=== PATIENT | male | born 1990 | race Caucasian/White ===

== ENCOUNTER → 2020-10-20 12:21 | Outpatient (CLI) | payer BC, SELFPAY | PROVIDERS: Visit Provider Nurse Practitioner Family | DX: R50.9 Fever, unspecified (principal) | CPT/HCPCS: 87635; U0003 ==

== ENCOUNTER 2021-04-27 14:44 | Outpatient (RCR) | payer BC, SELFPAY | END 2021-05-06 23:59 | LOC: NS 14:44 | PROVIDERS: Visit Provider Family Medicine | DX: Z71.3 Dietary counseling and surveillance (principal); E66.9 Obesity, unspecified; Z68.33 Body mass index [BMI] 33.0-33.9, adult | CPT/HCPCS: 97802 ==

== ENCOUNTER → 2021-05-08 15:20 | Outpatient (CLI) | payer BC, SELFPAY ==
[2021-05-08 17:31] LABS: Absolute Lymphocyte Count 1.74 X10^3/uL (0.83-4.51); Absolute Neutrophil Count 3.3 X10^3/uL (2.0-7.7); Basophil# 0.05 X10^3/uL; Basophil% 0.8 % (0-1); Eosinophil# 0.15 X10^3/uL; Eosinophils% 2.5 % (0-5); Hematocrit 44.1 % (40-54); Hemoglobin 14.6 g/dL (13.0-16.5); Lymphocyte # 1.74 X10^3/ul (0.83-4.51); Lymphocyte % 29.5 % (19-41); Mean Corp Hgb Conc 33.1 g/dL (32-36); Mean Corpuscular Volume 84.5 fL (80-94); Mean Platelet Vol. 8.7 fl (6.2-12.0); Monocyte# 0.69 X10^3/uL; Monocyte% 11.7 % (0-10); NRBC Flagged by Analyzer 0 % (0-5); Neutrophil # 3.25 X10^3/uL (2.7-7.7); Neutrophil % 55.2 % (47-70); Platelet Count 214 K/mm3 (150-450); RBC Distribution Width CV 12.2 % (11.6-14.6); RBC Distribution Width SD 37.2 fl (35.1-43.9); Red Blood Count 5.22 M/mm3 (4.6-6.2); White Blood Count 5.9 K/mm3 (4.4-11.0)
[2021-05-08 17:50] LABS: Vitamin D,25 Hydroxy 23.3 ng/mL
== END ==
PROVIDERS: Visit Provider Family Medicine
DX: E66.9 Obesity, unspecified (principal)
CPT/HCPCS: 36415; 82306; 85025

== ENCOUNTER 2021-06-01 16:00 | Outpatient (RCR) | payer BC, SELFPAY | END 2021-06-06 23:59 | LOC: NS 16:00 | PROVIDERS: Visit Provider Family Medicine | DX: Z71.3 Dietary counseling and surveillance (principal); E66.9 Obesity, unspecified; Z68.33 Body mass index [BMI] 33.0-33.9, adult | CPT/HCPCS: 97803 ==

== ENCOUNTER 2021-06-29 16:26 | Outpatient (RCR) | payer BC, SELFPAY | END 2021-07-07 23:59 | LOC: NS 16:26 | PROVIDERS: Visit Provider Family Medicine | DX: Z71.3 Dietary counseling and surveillance (principal); E66.9 Obesity, unspecified; Z68.33 Body mass index [BMI] 33.0-33.9, adult | CPT/HCPCS: 97803 ==

== ENCOUNTER 2021-07-20 15:26 | Outpatient (RCR) | payer BC, SELFPAY | END 2021-08-06 23:59 | LOC: NS 15:26 | PROVIDERS: Visit Provider Family Medicine | DX: Z71.3 Dietary counseling and surveillance (principal); E66.9 Obesity, unspecified; Z68.33 Body mass index [BMI] 33.0-33.9, adult | CPT/HCPCS: 97802 ==

== ENCOUNTER 2021-08-10 16:19 | Outpatient (RCR) | payer BC, SELFPAY | END 2021-09-06 23:59 | LOC: NS 16:19 | PROVIDERS: Visit Provider Family Medicine | DX: Z71.3 Dietary counseling and surveillance (principal); E66.9 Obesity, unspecified; Z68.33 Body mass index [BMI] 33.0-33.9, adult | CPT/HCPCS: 97803 ==

== ENCOUNTER 2021-09-21 16:04 | Outpatient (RCR) | payer BC, SELFPAY | END 2021-10-06 23:59 | LOC: NS 16:04 | PROVIDERS: PCP Family Medicine; Visit Provider Family Medicine | DX: Z71.3 Dietary counseling and surveillance (principal); E66.9 Obesity, unspecified; Z68.33 Body mass index [BMI] 33.0-33.9, adult | CPT/HCPCS: 97803 ==

== ENCOUNTER 2021-10-19 17:01 | Outpatient (RCR) | payer BC, SELFPAY | END 2021-11-06 23:59 | LOC: NS 17:01 | PROVIDERS: PCP Family Medicine; Visit Provider Family Medicine | DX: Z71.3 Dietary counseling and surveillance (principal); E66.9 Obesity, unspecified; Z68.33 Body mass index [BMI] 33.0-33.9, adult | CPT/HCPCS: 97803 ==

== ENCOUNTER → 2022-05-05 | Outpatient (CLI) | payer BC, SELFPAY ==
[2022-05-05 18:28] LABS: Vitamin D,25 Hydroxy 43.2 ng/mL
== END | disposition home or self-care (01) ==
LOC: MFPLAB 16:30
PROVIDERS: PCP Family Medicine; Visit Provider Family Medicine
DX: E55.9 Vitamin D deficiency, unspecified (principal)
CPT/HCPCS: 36415; 82306

== ENCOUNTER 2023-07-27 12:35 | Emergency (ER) | payer BC, SELFPAY ==
[2023-07-27 12:37] VITALS: BP 147/106; PULSE 78; RESP 18; TEMP 36.3; O2SAT 98; BMI 33.1
--- NOTE | 2023-07-27 12:51 | EKG12_ITS ---
Test Reason : PALP Blood Pressure : / mmHG Vent. Rate : 082 BPM Atrial Rate : 082 BPM P-R Int : 142 ms QRS Dur : 092 ms QT Int : 398 ms P-R-T Axes : 024 002 021 degrees QTc Int : 464 ms Normal sinus rhythm with sinus arrhythmia Normal ECG Confirmed by DARIO FINCH, MELISSA ([id number]), primer expeditor and drier LEYLA FIORE ([id number]) on 08/02/2023 10:43:01 AM Referred By: KARLOS/GARCIA Confirmed By:ARMIN BISHOP MD
--- NOTE | 2023-07-27 12:51 | EDS_ITS ---
HPI History of Present Illness Chief Complaint: Numb/Ting Detail of Chief Complaint: Paresthesias Informant: patient Narrative Narrative: Patient presents to the emergency department with complaint of paresthesias and chest discomfort. Patient states 2 weeks ago he got into a hot tub and had numbness and tingling to both feet that then resolved. Starting 5 days ago started having some odd sensations across his chest that felt like a burning sensation. He has had some intermittent burning sensation and numbness and tingling in both hands and both feet. This morning he has some numbness and tingling to his lips. Patient has been under increased stress and states that he lost his 3-1/2-year-old daughter about 3 months ago. No known history of anxiety or panic attacks. Denies recent illness otherwise. No family history of sudden cardiac or heart disease at a young age. No history of migraines. PFSH PFSH Home Medications lorazepam 1 mg tablet (Ativan) 1 mg PO TID PRN anxiety #10 tabs 07/27/23 [Rx Last Taken Unknown] Allergy/AdvReac Type Severity Reaction Status Date / Time No Known Allergies Allergy Verified 07/27/23 12:37 Social History Smoking Status: Never smoker ROS ROS ED Review of Systems ROS Unobtainable: other Constitutional Constitutional ED: Reports lethargy; Denies chills, fever(s), sweats or weight loss Eyes Eyes: Denies blurry vision, change in vision or diplopia ENT ENT ED: Denies rhinorrhea or sore throat Cardiovascular Cardiovascular: Reports chest pain; Denies orthopnea or racing heartbeat Respiratory/Chest Respiratory/Chest: Reports dyspnea and dyspnea on exertion; Denies cough, orthopnea or sputum Gastrointestinal Gastrointestinal: Denies abdominal pain, diarrhea, nausea or vomiting Genitourinary Genitourinary ED: Denies dysuria, hematuria or urinary frequency Musculoskeletal Musculoskeletal: Denies arthralgias, back pain, myalgias or neck pain Integumentary Denies abscess, Abrasions or rash Neurologic Neurologic: Reports paresthesias; Denies headache(s) or weakness Psychiatric Psychiatric: Denies anxiety, depression or suicidal thoughts Endocrine Endocrinology: Denies polydipsia, polyphagia or polyuria Hematologic/Lymphatic Hematologic/Lymphatic: Denies easy bleeding, easy bruising or lymphadenopathy Allergic/Immunologic Allergic/Immunologic ED: Denies mouth swelling, tongue swelling or urticaria EXAM Physical Exam Const Vital Signs: 07/27/23 12:37 Temperature 97.3 F L Temperature Source Temporal Pulse Rate 78 Respiratory Rate 18 Blood Pressure 147/106 H Blood Pressure Mean 119 Pulse Ox 98 Oxygen Delivery Method Room Air Positive well nourished and well developed General Appearance ED: well developed and NAD HEENT Reports TM's clear and moist mucous membranes normocephalic and atraumatic; Negative for trauma or tenderness Tympanic Membrane ED: Yes TM's clear Eyes PERRL and EOMs intact bilaterally General Eye ED: Negative for pale conjunctiva or scleral icterus Neck no lymphadenopathy, supple and no JVD General: Negative for tenderness Chest Wall inspection of chest normal and palpation of chest normal Chest: Negative for tenderness Resp normal respiratory effort and clear to auscultation bilaterally Effort and Inspection: Negative for respiratory distress or pain with movement Auscultation: Negative for rhonchi, wheezes or diminished lung sounds Cardio regular rate, regular rhythm, S1 normal heart sound, S2 normal heart sound and no murmurs Peripheral Pulses: pulses 2+ throughout GI normal to inspection, nondistended, normoactive bowel sounds, soft to palpation, non-tender, non-distended and no masses Back/Spine no CVA tenderness and no thoracic nor lumbar tenderness Extremity normal to inspection General Extremety ED: Negative for edema General Extremity: Negative for edema Neuro oriented x3, CN's II-XII intact bilaterally, no sensory deficits noted and gait normal Sensorium / Orientation: awake, alert, oriented to person, oriented to place and oriented to time Motor Exam: strength 5/5 throughout and strength abnormal Psych mental status grossly normal Skin no rashes or lesions noted and no wounds MDM MDM MDM Narrative Medical decision making narrative: Patient presents with multiple vague complaints of feeling jittery and paresthesias intermittently in the hands and feet and face. Patient at times with chest pain and some shortness of breath. He has had significant loss recently. No diagnosis of anxiety. IV line established. EKG obtained on arrival showed a sinus rhythm with a rate of 82 bpm with occasional PACs. CBC with differential was normal. Chemistries unremarkable. Blood glucose was minimally elevated at 108 but this is not a fasting level. Troponin less than 3. This point etiology of his symptoms unclear although I suspect a component of anxiety. We will write him a prescription for Ativan as needed. Advised to follow-up with his primary care physician whom he has an appointment with in 6 days. Lab Data Attestation: I reviewed the patient's lab results. Labs: Laboratory Results - last 24 hr 07/27/23 13:20 WBC 5.1 RBC 5.61 Hgb 15.3 Hct 46.9 MCV 83.6 MCH 27.3 MCHC 32.6 RDW Std Deviation 37.3 RDW Coeff of [place] 12.3 Plt Count 205 MPV 8.5 Immature Gran % (Auto) 0.200 Neut % (Auto) 60.5 Lymph % (Auto) 26.2 [place] % (Auto) 9.2 Eos % (Auto) 2.9 Baso % (Auto) 1.0 Absolute Neuts (auto) 3.1 Absolute Lymphs (auto) 1.34 Nucleated RBC % 0 Sodium 138 Potassium 3.8 Chloride 107 Carbon Dioxide 29.0 Anion Gap 2 L BUN 15 Creatinine 1.07 Estim Creat Clear Calc 116.30 Est GFR (MDRD) Af Amer 104 Est GFR (MDRD) Non-Af 86 BUN/Creatinine Ratio 14.0 Glucose 108 H Calcium 8.9 Troponin I High Sens < 3 L Discharge Plan Triage Chief Complaint: Numb/Ting ED Provider: Adeola Ojeda Dx/Rx/DC Orders Clinical Impression: Paresthesias, Anxiety, Chest pain Instructions: ED Anxiety Reaction, ED Chest Pain, Uncertain Cause, ED Paraesthesias Prescriptions: New lorazepam [Ativan] 1 mg tablet 1 mg PO TID PRN (Reason: anxiety) Qty: 10 0RF Primary Care Provider: Shane Calixto Referrals: Shane Calixto MD [Primary Care Provider] - 3-5 Days Disposition Disposition: Home, Self Care Discharge Date/Time: 07/27/23 14:07
--- NOTE | 2023-07-27 13:01 | NURSING ---
NO OLD EKG
[2023-07-27 13:25] LABS: Absolute Lymphocyte Count 1.34 X10^3/uL (0.83-4.51); Absolute Neutrophil Count 3.1 X10^3/uL (2.0-7.7); Basophil# 0.05 X10^3/uL; Eosinophil# 0.15 X10^3/uL; Eosinophils% 2.9 % (0-5); Hematocrit 46.9 % (40-54); Hemoglobin 15.3 g/dL (13.0-16.5); Lymphocyte # 1.34 X10^3/ul (0.83-4.51); Lymphocyte % 26.2 % (19-41); Mean Corp Hgb Conc 32.6 g/dL (32-36); Mean Corpuscular Hgb 27.3 pg (27.0-32.0); Mean Corpuscular Volume 83.6 fL (80-94); Mean Platelet Vol. 8.5 fl (6.2-12.0); Monocyte# 0.47 X10^3/uL; Monocyte% 9.2 % (0-10); NRBC Flagged by Analyzer 0 % (0-5); Neutrophil % 60.5 % (47-70); Platelet Count 205 K/mm3 (150-450); RBC Distribution Width CV 12.3 % (11.6-14.6); RBC Distribution Width SD 37.3 fl (35.1-43.9); Red Blood Count 5.61 M/mm3 (4.6-6.2); White Blood Count 5.1 K/mm3 (4.4-11.0)
[2023-07-27 13:45] LABS: Anion Gap 2 (5-15); BUN 15 mg/dL (7-18); Calcium,Total 8.9 mg/dL (8.5-10.1); Chloride 107 mmol/L (98-107); Creatinine, Serum 1.07 mg/dL (0.70-1.30); EST Glomerular Filtration Rate 86 mL/min (>60); Est Glom Filt Rate - Afr Amer 104 mL/min (>60); Glucose 108 mg/dL (74-106); Potassium 3.8 mmol/L (3.5-5.1); Sodium Level 138 mmol/L (136-145); Troponin-I HS < 3 pg/mL (3.0-78.0)
[2023-07-27 14:06] VITALS: BP 139/77; PULSE 62; RESP 15; O2SAT 97
== END 2023-07-27 14:07 | disposition home or self-care (01) ==
PROVIDERS: Emergency Provider Emergency Medicine; PCP Family Medicine; Visit Provider Emergency Medicine
DX: R20.2 Paresthesia of skin (principal); R07.9 Chest pain, unspecified; F41.9 Anxiety disorder, unspecified; R73.9 Hyperglycemia, unspecified; R06.00 Dyspnea, unspecified
CPT/HCPCS: 80048; 84484; 85025; 93005; 99284

== ENCOUNTER → 2024-07-27 | Outpatient (CLI) | payer BC, SELFPAY ==
[2024-07-27 08:37] LABS: Vitamin B12 600 pg/mL (211-911); Vitamin D,25 Hydroxy 27.9 ng/mL
[2024-07-27 08:51] LABS: Cholesterol 170 mg/dL (200); High Density Lipoprotein 61 mg/dL; Triglycerides 88 mg/dL; Very Low Density Lipoprotein 18 mg/dL (5-40)
== END | disposition home or self-care (01) ==
PROVIDERS: PCP Family Medicine; Referring Provider Family Medicine; Visit Provider Family Medicine
DX: E78.5 Hyperlipidemia, unspecified (principal); E55.9 Vitamin D deficiency, unspecified; E53.8 Deficiency of other specified B group vitamins
CPT/HCPCS: 36415; 80061; 82306; 82607

== ENCOUNTER → 2025-06-24 | Outpatient (CLI) | payer BC, SELFPAY ==
--- NOTE | 2025-06-24 09:29 | BI_ITS ---
EXAM: DIAG MAMM W/CAD, BILAT N/A CLINICAL HISTORY: M, Age 35 y/o , LEFT BREAST MASS. 2 palpable masses in the left breast. They are not painful. He does have a history of lipomas. TECHNIQUE: DIAG MAMM W/CAD, BILAT. COMPARISON: None. FINDINGS: TISSUE DENSITY: The breasts are almost entirely fatty. Bilateral Breast Mammographic Findings: 2 radiopaque markers are placed over the 2 left breast palpable abnormalities. There is no mammographic abnormality to correlate to either of these areas. Further workup with ultrasound will be performed for further evaluation. Benign round microcalcifications are seen in the left breast. Benign round microcalcifications are seen in the right breast. No suspicious masses, suspicious clustered microcalcifications, architectural distortion or secondary sign of malignancy is identified in the right breast. BI/DIAG MAMM W/CAD, BILAT IMPRESSION: 2 radiopaque markers are placed over the 2 left breast palpable abnormalities. There is no mammographic abnormality to correlate to either of these areas. Further workup with ultrasound will be performed for further evaluation. OVERALL FINAL ASSESSMENT BI-RADS 0: INCOMPLETE - NEED ADDITIONAL IMAGING EVALUATION. RECOMMENDATION: Ultrasound Recommended A letter with findings and recommendations will be mailed to the patient. Reading Location: [id number]
--- NOTE | 2025-06-24 09:29 | US_ITS ---
PROCEDURE: BREAST LIMITED UNILATERAL 06/24/2025 REASON FOR EXAM: M, Age 35 y/o , L LOWER BREAST left breast palpable abnormalities. Inconclusive mammogram. Evaluate palpable masses. COMPARISON: Mammogram study dated 06/24/2025.. TECHNIQUE: BREAST LIMITED UNILATERAL FINDINGS: There are 3 solid hyperechoic/ isoechoic masses in the left breast. These masses abut the dermis. 2 of these do correlate to palpable abnormalities. 1 mass is not palpable. These masses are wider than they are tall and do not produce any posterior shadowing. They have smooth margins. The masses are located at the 4 o'clock, 9 cm from the nipple position measuring 2.7 x 2.1 x 0.9 cm, 4 o'clock, 8 cm from the nipple position measuring 1.6 x 0.9 x 0.8 cm and 5:30, 5 cm from the nipple position measuring 2.5 x 1.6 x 1.0 cm. The masses are most compatible with lipomas. Short-term six-month follow-up ultrasound however is recommended to document stability. US/Breast Limited Unilateral IMPRESSION: There are 3 solid hyperechoic/ isoechoic masses in the left breast. These sheree s abut the dermis. 2 of these do correlate to palpable abnormalities. 1 mass is not palpable. The masses are most compatible with lipomas. Short-term six-month follow-up ultrasound however is recommended to document stability. BI-RADS 3: PROBABLY BENIGN. RECOMMENDATION: 6 Month Follow-up Reading Location: [id number]
== END | disposition home or self-care (01) ==
PROVIDERS: PCP Family Medicine; Referring Provider Family Medicine; Visit Provider Family Medicine
DX: N63.23 Unspecified lump in the left breast, lower outer quadrant (principal)
CPT/HCPCS: 76642; 77062; 77066; G0279